=== PATIENT | female | born 1965 | race Caucasian/White ===

== ENCOUNTER 2017-07-04 10:32 | Inpatient (IN) | payer OTHER ==
[2017-07-04 13:24] VITALS: BP 183/87
[2017-07-04 13:26] VITALS: BP 183/87
[2017-07-04] MEDS ORDERED: NOVOLOG PE100 UNITS/ SC (14:10)
[2017-07-04] MEDS ORDERED: ELAVIL25 MG PO (14:12)
[2017-07-04] MEDS ORDERED: PROZAC40 MG PO (14:12)
[2017-07-04] MEDS ORDERED: PRILOSEC OTC20 MG PO (14:13)
[2017-07-04] MEDS ORDERED: CARAFATE1 GM PO (14:14)
[2017-07-04] MEDS ORDERED: LIPITOR80 MG PO (14:15)
[2017-07-04] MEDS ORDERED: PLAVIX75 MG PO (14:15)
[2017-07-04] MEDS ORDERED: DILAUDID4 MG PO (14:16)
[2017-07-04] MEDS ORDERED: OXYCODONE HCL20 M1 PO (14:17)
[2017-07-04] MEDS ORDERED: FLORASTOR250 MG PO (14:18)
[2017-07-04] MEDS ORDERED: ZOFRAN ODT4 MG PO (14:19)
[2017-07-04] MEDS ORDERED: LEVEMIR100 UNIT/2 SQ (14:20)
[2017-07-04] MEDS ORDERED: ZESTRIL10 MG PO (14:21)
[2017-07-04] MEDS ORDERED: NORVASC5 MG PO (14:22)
[2017-07-04] MEDS ORDERED: LOPRESSOR25 MG PO (14:22)
[2017-07-04 16:43] VITALS: BP 229/110
[2017-07-04 18:30] VITALS: BP 164/72
[2017-07-05 07:52] VITALS: BP 186/85
[2017-07-05 17:10] VITALS: BP 163/80
[2017-07-06 08:07] VITALS: BP 143/65
[2017-07-06 16:13] VITALS: BP 161/70
[2017-07-07 09:01] VITALS: BP 124/68
[2017-07-07] MEDS ORDERED: BUPROPION XL150 MG PO (09:11)
[2017-07-07] MEDS ORDERED: ZOLPIDEM TARTRAT5 MG PO (09:11)
== END 2017-07-07 16:17 | disposition home or self-care (01) | DRG 885 ==
LOC: 1WEST 10:32 → ENRESERV 11:11 → 1WEST 13:19
PROVIDERS: Psychiatry & Neurology Psychiatry
DX: F33.2 Major depressive disorder, recurrent severe without psychotic features (principal); R45.851 Suicidal ideations; E11.9 Type 2 diabetes mellitus without complications; E78.00 Pure hypercholesterolemia, unspecified; G47.00 Insomnia, unspecified; I10 Essential (primary) hypertension; I25.10 Atherosclerotic heart disease of native coronary artery without angina pectoris; K21.9 Gastro-esophageal reflux disease without esophagitis; G43.909 Migraine, unspecified, not intractable, without status migrainosus; G89.29 Other chronic pain; E66.01 Morbid (severe) obesity due to excess calories; Z90.710 Acquired absence of both cervix and uterus; Z90.49 Acquired absence of other specified parts of digestive tract; Z95.1 Presence of aortocoronary bypass graft; Z95.5 Presence of coronary angioplasty implant and graft; Z79.4 Long term (current) use of insulin; Z79.02 Long term (current) use of antithrombotics/antiplatelets; Z83.3 Family history of diabetes mellitus
CPT/HCPCS: 82948; 97150 GO; 97165 GO; J1815